=== PATIENT | female | born 1935 | race Asian ===

== ENCOUNTER 2019-03-01 12:21 | Inpatient (IN) | payer MEDICARE, OTHER ==
[2019-03-01 14:07] LABS: ADD MAN DIFF? NO
[2019-03-01 14:10] LABS: WHITE BLOOD COUNT 4.6 10^3/ul (4.8-10.8)
[2019-03-01 14:11] LABS: BASOPHILS % 0.6 % (0.0-2.0); EOSINOPHILS # 0.1 10^3/ul (0.0-0.5); EOSINOPHILS % 1.9 % (0.0-7.0); HEMATOCRIT 39.5 % (37.0-47.0); HEMOGLOBIN 13.3 g/dl (12.0-16.0); LYMPHOCYTES # 1.4 10^3/ul (0.8-2.9); LYMPHOCYTES % 31.1 % (15.0-51.0); MEAN CORPUSCULAR HEMOGLOBIN 35.4 pg (29.0-33.0); MEAN CORPUSCULAR HGB CONC 33.7 g/dl (32.0-37.0); MEAN CORPUSCULAR VOLUME 105.1 fl (82.0-101.0); MEAN PLATELET VOLUME 9.4 fl (7.4-10.4); MONOCYTE # 0.6 10^3/ul (0.3-0.9); MONOCYTES % 12.5 % (0.0-11.0); NEUTROPHIL # 2.5 10^3/ul (1.6-7.5); NEUTROPHILS % 53.5 % (39.0-77.0); PLATELET COUNT 155 10^3/UL (140-415); RED BLOOD COUNT 3.76 10^6/ul (4.20-5.40); RED CELL DISTRIBUTION WIDTH 12.8 % (11.5-14.5)
[2019-03-01 14:30] LABS: ALANINE AMINOTRANSFERASE 40 IU/L (13-69); ALBUMIN 4.4 g/dl (3.3-4.9); ALBUMIN/GLOBULIN RATIO 1.12; ALKALINE PHOSPHATASE 80 IU/L (42-121); ANION GAP 9 (5-13); ASPARTATE AMINO TRANSFERASE 40 IU/L (15-46); BILIRUBIN,INDIRECT 0.8 mg/dl (0-1.1); BILIRUBIN,TOTAL 0.8 mg/dl (0.2-1.3); BLOOD UREA NITROGEN 19 mg/dl (7-20); CALCIUM 9.5 mg/dl (8.4-10.2); CARBON DIOXIDE 25 mmol/L (21-31); CHLORIDE 108 mmol/L (97-110); CREATININE 0.59 mg/dl (0.44-1.00); GLUCOSE 99 mg/dl (70-220); POTASSIUM 4.4 mmol/L (3.5-5.1); SODIUM 142 mmol/L (135-144); TOTAL PROTEIN 8.3 g/dl (6.1-8.1)
[2019-03-01 14:36] LABS: ADD UMIC NO; UR ASCORBIC ACID 20 mg/dL (NEGATIVE); UR BILIRUBIN (Dip) NEGATIVE (NEGATIVE); UR BLOOD (Dip) NEGATIVE (NEGATIVE); UR CLARITY CLEAR (CLEAR); UR COLOR YELLOW (YELLOW); UR GLUCOSE (Dip) NEGATIVE (NEGATIVE); UR KETONES (Dip) NEGATIVE (NEGATIVE); UR LEUKOCYTE ESTERASE (Dip) NEGATIVE Leu/ul (NEGATIVE); UR NITRITE (Dip) NEGATIVE (NEGATIVE); UR SPECIFIC GRAVITY (Dip) 1.018 (1.003-1.030); UR TOTAL PROTEIN (Dip) NEGATIVE (NEGATIVE); UR UROBILINOGEN (Dip) NEGATIVE (NEGATIVE)
[2019-03-01 14:41] LABS: TROPONIN-I < 0.012 ng/ml (0.000-0.120)
[2019-03-01] MEDS: MECLIZINE 12.5 MG TAB PO (15:48)
[2019-03-01] MEDS: PROCHLORPERAZINE 10 MG INJ IV ×2 (17:12→18:41)
[2019-03-01] MEDS: SOD CHLORIDE 0.9% 500 ML IV (17:12)
[2019-03-01] MEDS ORDERED: BISACODYL (EC) 5 MG TAB PO (18:30)
[2019-03-01] MEDS ORDERED: NACL 0.9% 3 ML SYG IV (18:30)
[2019-03-01] MEDS ORDERED: ONDANSETRON 4 MG INJ IV ×2 (18:30→19:00)
[2019-03-01] MEDS ORDERED: DOCUSATE SODIUM 100 MG CAP PO (18:30)
[2019-03-01] MEDS ORDERED: ACETAMINOPHEN 325 MG TAB PO ×2 (18:30→19:00)
[2019-03-01] MEDS ORDERED: LORAZEPAM 0.5 MG TAB PO (18:30)
[2019-03-01] MEDS: MECLIZINE 25 MG TAB PO (23:26)
[2019-03-01] MEDS: PSEUDOEPHEDRINE 30 MG TAB PO (23:27)
[2019-03-01] MEDS: ATORVASTATIN 20 MG TAB PO (23:27)
[2019-03-01] MEDS: AMOXICILLIN/CLAV 875 MG TAB PO (23:27)
[2019-03-01] MEDS: LATANOPROST 0.005% 2.5 ML OPH BOTH EYES (23:28)
[2019-03-01] MEDS: FLUTICASONE 0.05% 16 GM NAS SPRAY NASAL (23:28)
[2019-03-02 01:50] LABS: CREATINE KINASE 94 IU/L (23-200)
[2019-03-02 02:02] LABS: CK INDEX 2.1; CK-MB 1.93 ng/ml (0.0-2.4); TROPONIN-I < 0.012 ng/ml (0.000-0.120)
[2019-03-02] MEDS: PANTOPRAZOLE (EC) 40 MG TAB PO (05:54)
[2019-03-02 06:19] LABS: ADD MAN DIFF? NO
[2019-03-02 06:23] LABS: BASOPHILS % 0.6 % (0.0-2.0); EOSINOPHILS # 0.1 10^3/ul (0.0-0.5); EOSINOPHILS % 2.4 % (0.0-7.0); HEMATOCRIT 41.1 % (37.0-47.0); HEMOGLOBIN 13.9 g/dl (12.0-16.0); LYMPHOCYTES # 1.4 10^3/ul (0.8-2.9); LYMPHOCYTES % 29.1 % (15.0-51.0); MEAN CORPUSCULAR HEMOGLOBIN 34.6 pg (29.0-33.0); MEAN CORPUSCULAR HGB CONC 33.8 g/dl (32.0-37.0); MEAN CORPUSCULAR VOLUME 102.2 fl (82.0-101.0); MEAN PLATELET VOLUME 9.5 fl (7.4-10.4); MONOCYTE # 0.5 10^3/ul (0.3-0.9); MONOCYTES % 10.8 % (0.0-11.0); NEUTROPHIL # 2.8 10^3/ul (1.6-7.5); NEUTROPHILS % 56.5 % (39.0-77.0); PLATELET COUNT 162 10^3/UL (140-415); RED BLOOD COUNT 4.02 10^6/ul (4.20-5.40); RED CELL DISTRIBUTION WIDTH 12.5 % (11.5-14.5)
[2019-03-02 06:23] LABS: WHITE BLOOD COUNT 4.9 10^3/ul (4.8-10.8)
[2019-03-02] MEDS: SOD CHLORIDE 0.9% 1,000 ML IV (06:40)
[2019-03-02] MEDS: ALENDRONATE 70 MG TAB PO (06:40)
[2019-03-02] MEDS: LEVOTHYROXINE 88 MCG TAB PO (06:44)
[2019-03-02 07:49] LABS: ALANINE AMINOTRANSFERASE 41 IU/L (13-69); ALBUMIN 4.5 g/dl (3.3-4.9); ALBUMIN/GLOBULIN RATIO 1.32; ALKALINE PHOSPHATASE 77 IU/L (42-121); ANION GAP 9 (5-13); ASPARTATE AMINO TRANSFERASE 42 IU/L (15-46); BILIRUBIN,INDIRECT 0.6 mg/dl (0-1.1); BILIRUBIN,TOTAL 0.6 mg/dl (0.2-1.3); BLOOD UREA NITROGEN 24 mg/dl (7-20); CALCIUM 9.2 mg/dl (8.4-10.2); CARBON DIOXIDE 24 mmol/L (21-31); CHLORIDE 111 mmol/L (97-110); CHOL/HDL RATIO 4.8 RATIO; CHOLESTEROL 219 mg/dl (100-200); CREATININE 0.48 mg/dl (0.44-1.00); GLUCOSE 112 mg/dl (70-220); HDL CHOLESTEROL 45 mg/dl (33-92); LDL CHOLESTEROL,CALCULATED 153 mg/dl; MAGNESIUM 2.5 mg/dl (1.7-2.5); POTASSIUM 5.1 mmol/L (3.5-5.1); SODIUM 144 mmol/L (135-144); TOTAL PROTEIN 7.9 g/dl (6.1-8.1); TRIGLYCERIDES 107 mg/dl (0-149)
[2019-03-02] MEDS: ASPIRIN (EC) 81 MG TAB PO (08:35)
[2019-03-02] MEDS: FLUTICASONE 0.05% 16 GM NAS SPRAY NASAL ×2 (08:35→21:39)
[2019-03-02] MEDS: ARTIFICIAL TEARS 15 ML OPH BOTH EYES ×2 (08:35→21:39)
[2019-03-02] MEDS: AMLODIPINE 10 MG TAB PO (08:36)
[2019-03-02] MEDS: ISOSORBIDE MONONITRATE(SR)30 MG TAB PO (08:36)
[2019-03-02] MEDS: PSEUDOEPHEDRINE 30 MG TAB PO (08:36)
[2019-03-02] MEDS: MECLIZINE 25 MG TAB PO ×3 (08:36→21:39)
[2019-03-02] MEDS: AMOXICILLIN/CLAV 875 MG TAB PO (08:36)
[2019-03-02] MEDS ORDERED: NON-FORMULARY/PATIENT OWN MED (Omeprazole* 40 MG) PO (09:00)
[2019-03-02] MEDS ORDERED: SUCRALFATE (100 MG/ML) 10ML CUP PO (11:00)
[2019-03-02 11:44] LABS: HEMOGLOBIN A1C 5.3 % (0-5.9)
[2019-03-02] MEDS: SUCRALFATE (100 MG/ML) 10ML CUP PO ×3 (12:02→21:39)
[2019-03-02 13:58] LABS: FREE THYROXINE INDEX (Calc) 1.58 ug/ml (0.65-3.89); T3 UPTAKE 27.2 % (23.5-40.5); T4 (THYROXINE) 5.8 ug/dl (5.5-11.0)
[2019-03-02] MEDS: LATANOPROST 0.005% 2.5 ML OPH BOTH EYES (21:38)
[2019-03-02] MEDS: LORATADINE 10 MG TAB PO (21:39)
[2019-03-02] MEDS: ATORVASTATIN 20 MG TAB PO (21:39)
[2019-03-03 05:24] LABS: ADD MAN DIFF? NO
[2019-03-03 05:33] LABS: WHITE BLOOD COUNT 7.1 10^3/ul (4.8-10.8)
[2019-03-03 05:33] LABS: BASOPHILS % 0.3 % (0.0-2.0); EOSINOPHILS # 0.1 10^3/ul (0.0-0.5); EOSINOPHILS % 1.3 % (0.0-7.0); HEMATOCRIT 38.6 % (37.0-47.0); HEMOGLOBIN 13.1 g/dl (12.0-16.0); LYMPHOCYTES # 1.1 10^3/ul (0.8-2.9); LYMPHOCYTES % 15.8 % (15.0-51.0); MEAN CORPUSCULAR HGB CONC 33.9 g/dl (32.0-37.0); MEAN CORPUSCULAR VOLUME 103.2 fl (82.0-101.0); MEAN PLATELET VOLUME 9.7 fl (7.4-10.4); MONOCYTE # 0.9 10^3/ul (0.3-0.9); MONOCYTES % 12.1 % (0.0-11.0); NEUTROPHILS % 70.1 % (39.0-77.0); PLATELET COUNT 123 10^3/UL (140-415); RED BLOOD COUNT 3.74 10^6/ul (4.20-5.40); RED CELL DISTRIBUTION WIDTH 12.4 % (11.5-14.5)
[2019-03-03] MEDS: LEVOTHYROXINE 88 MCG TAB PO (06:24)
[2019-03-03] MEDS: PANTOPRAZOLE (EC) 40 MG TAB PO (06:24)
[2019-03-03 06:58] LABS: ANION GAP 6 (5-13); BLOOD UREA NITROGEN 18 mg/dl (7-20); CALCIUM 8.7 mg/dl (8.4-10.2); CARBON DIOXIDE 24 mmol/L (21-31); CHLORIDE 110 mmol/L (97-110); CREATININE 0.47 mg/dl (0.44-1.00); GLUCOSE 107 mg/dl (70-220); MAGNESIUM 2.1 mg/dl (1.7-2.5); PHOSPHORUS 3.1 mg/dl (2.5-4.9); POTASSIUM 3.9 mmol/L (3.5-5.1); SODIUM 140 mmol/L (135-144)
[2019-03-03] MEDS: SUCRALFATE (100 MG/ML) 10ML CUP PO ×4 (08:26→21:48)
[2019-03-03] MEDS: ASPIRIN (EC) 81 MG TAB PO (08:26)
[2019-03-03] MEDS: MECLIZINE 25 MG TAB PO ×3 (08:26→21:48)
[2019-03-03] MEDS: FLUTICASONE 0.05% 16 GM NAS SPRAY NASAL ×2 (08:26→21:48)
[2019-03-03] MEDS: ARTIFICIAL TEARS 15 ML OPH BOTH EYES ×2 (08:26→21:48)
[2019-03-03] MEDS: ISOSORBIDE MONONITRATE(SR)30 MG TAB PO (08:27)
[2019-03-03] MEDS: AMLODIPINE 10 MG TAB PO (08:37)
[2019-03-03] MEDS: ATORVASTATIN 20 MG TAB PO (21:48)
[2019-03-03] MEDS: LATANOPROST 0.005% 2.5 ML OPH BOTH EYES (21:48)
[2019-03-03] MEDS: LORATADINE 10 MG TAB PO (21:48)
[2019-03-04] MEDS: PANTOPRAZOLE (EC) 40 MG TAB PO (06:24)
[2019-03-04] MEDS: LEVOTHYROXINE 88 MCG TAB PO (06:24)
[2019-03-04] MEDS: FLUTICASONE 0.05% 16 GM NAS SPRAY NASAL ×2 (09:13→20:47)
[2019-03-04] MEDS: ARTIFICIAL TEARS 15 ML OPH BOTH EYES ×2 (09:13→20:48)
[2019-03-04] MEDS: AMLODIPINE 10 MG TAB PO (09:14)
[2019-03-04] MEDS: ASPIRIN (EC) 81 MG TAB PO (09:14)
[2019-03-04] MEDS: MECLIZINE 25 MG TAB PO ×3 (09:14→20:46)
[2019-03-04] MEDS: SUCRALFATE (100 MG/ML) 10ML CUP PO ×4 (09:14→20:46)
[2019-03-04] MEDS: ISOSORBIDE MONONITRATE(SR)30 MG TAB PO (09:22)
[2019-03-04] MEDS: DICLOFENAC SODIUM 1% GEL 100 GM TUBE TP ×3 (12:42→20:47)
[2019-03-04] MEDS: CARBAMIDE PEROXIDE 6.5% 15ML OTIC BOTH EARS ×2 (14:38→20:49)
[2019-03-04] MEDS ORDERED: CARBAMIDE PEROXIDE 6.5% 15ML OTIC RIGHT EAR (15:00)
[2019-03-04] MEDS: LORATADINE 10 MG TAB PO (20:46)
[2019-03-04] MEDS: LATANOPROST 0.005% 2.5 ML OPH BOTH EYES (20:47)
[2019-03-04] MEDS: ATORVASTATIN 20 MG TAB PO (20:48)
[2019-03-05] MEDS: LEVOTHYROXINE 88 MCG TAB PO (06:07)
[2019-03-05] MEDS: PANTOPRAZOLE (EC) 40 MG TAB PO (06:07)
[2019-03-05] MEDS: FLUTICASONE 0.05% 16 GM NAS SPRAY NASAL ×2 (09:06→20:58)
[2019-03-05] MEDS: ARTIFICIAL TEARS 15 ML OPH BOTH EYES ×2 (09:06→20:58)
[2019-03-05] MEDS: SUCRALFATE (100 MG/ML) 10ML CUP PO ×4 (09:07→20:57)
[2019-03-05] MEDS: CARBAMIDE PEROXIDE 6.5% 15ML OTIC BOTH EARS ×2 (09:07→20:58)
[2019-03-05] MEDS: ASPIRIN (EC) 81 MG TAB PO (09:08)
[2019-03-05] MEDS: DICLOFENAC SODIUM 1% GEL 100 GM TUBE TP ×4 (09:09→20:58)
[2019-03-05] MEDS: ISOSORBIDE MONONITRATE(SR)30 MG TAB PO (09:09)
[2019-03-05] MEDS: MECLIZINE 25 MG TAB PO ×3 (09:09→20:59)
[2019-03-05] MEDS: AMLODIPINE 10 MG TAB PO (09:09)
[2019-03-05] MEDS: ATORVASTATIN 20 MG TAB PO (20:57)
[2019-03-05] MEDS: LATANOPROST 0.005% 2.5 ML OPH BOTH EYES (20:57)
[2019-03-05] MEDS: LORATADINE 10 MG TAB PO (20:59)
[2019-03-06] MEDS: LEVOTHYROXINE 88 MCG TAB PO (05:12)
[2019-03-06] MEDS: PANTOPRAZOLE (EC) 40 MG TAB PO (05:13)
[2019-03-06] MEDS: SUCRALFATE (100 MG/ML) 10ML CUP PO ×4 (08:51→20:15)
[2019-03-06] MEDS: ISOSORBIDE MONONITRATE(SR)30 MG TAB PO (08:52)
[2019-03-06] MEDS: MECLIZINE 25 MG TAB PO ×3 (08:52→21:00)
[2019-03-06] MEDS: AMLODIPINE 5 MG TAB PO (08:53)
[2019-03-06] MEDS: CARBAMIDE PEROXIDE 6.5% 15ML OTIC BOTH EARS ×2 (08:53→20:16)
[2019-03-06] MEDS: ASPIRIN (EC) 81 MG TAB PO (08:54)
[2019-03-06] MEDS: DICLOFENAC SODIUM 1% GEL 100 GM TUBE TP ×4 (08:54→20:20)
[2019-03-06] MEDS: FLUTICASONE 0.05% 16 GM NAS SPRAY NASAL ×2 (08:54→20:15)
[2019-03-06] MEDS: ARTIFICIAL TEARS 15 ML OPH BOTH EYES ×2 (08:54→20:15)
[2019-03-06] MEDS: ATORVASTATIN 20 MG TAB PO (20:15)
[2019-03-06] MEDS: LATANOPROST 0.005% 2.5 ML OPH BOTH EYES (20:16)
[2019-03-06] MEDS: LORATADINE 10 MG TAB PO (21:00)
[2019-03-07] MEDS: PANTOPRAZOLE (EC) 40 MG TAB PO (06:03)
[2019-03-07] MEDS: LEVOTHYROXINE 88 MCG TAB PO (06:03)
[2019-03-07 06:53] LABS: ADD MAN DIFF? NO
[2019-03-07 06:56] LABS: BASOPHILS % 0.4 % (0.0-2.0); EOSINOPHILS # 0.1 10^3/ul (0.0-0.5); HEMATOCRIT 39.8 % (37.0-47.0); HEMOGLOBIN 13.4 g/dl (12.0-16.0); LYMPHOCYTES # 1.5 10^3/ul (0.8-2.9); LYMPHOCYTES % 31.5 % (15.0-51.0); MEAN CORPUSCULAR HEMOGLOBIN 35.4 pg (29.0-33.0); MEAN CORPUSCULAR HGB CONC 33.7 g/dl (32.0-37.0); MEAN PLATELET VOLUME 10.4 fl (7.4-10.4); MONOCYTE # 0.7 10^3/ul (0.3-0.9); MONOCYTES % 14.3 % (0.0-11.0); NEUTROPHIL # 2.3 10^3/ul (1.6-7.5); NEUTROPHILS % 49.9 % (39.0-77.0); PLATELET COUNT 119 10^3/UL (140-415); RED BLOOD COUNT 3.79 10^6/ul (4.20-5.40); RED CELL DISTRIBUTION WIDTH 12.6 % (11.5-14.5)
[2019-03-07 06:56] LABS: WHITE BLOOD COUNT 4.6 10^3/ul (4.8-10.8)
[2019-03-07 07:39] LABS: ALBUMIN 3.6 g/dl (3.3-4.9); ANION GAP 5 (5-13); BLOOD UREA NITROGEN 16 mg/dl (7-20); CALCIUM 8.8 mg/dl (8.4-10.2); CARBON DIOXIDE 27 mmol/L (21-31); CHLORIDE 109 mmol/L (97-110); CREATININE 0.48 mg/dl (0.44-1.00); GLUCOSE 101 mg/dl (70-220); MAGNESIUM 2.1 mg/dl (1.7-2.5); PHOSPHORUS 3.8 mg/dl (2.5-4.9); POTASSIUM 3.8 mmol/L (3.5-5.1); SODIUM 141 mmol/L (135-144)
[2019-03-07] MEDS: FLUTICASONE 0.05% 16 GM NAS SPRAY NASAL (08:45)
[2019-03-07] MEDS: ARTIFICIAL TEARS 15 ML OPH BOTH EYES (08:46)
[2019-03-07] MEDS: CARBAMIDE PEROXIDE 6.5% 15ML OTIC BOTH EARS (08:46)
[2019-03-07] MEDS: DICLOFENAC SODIUM 1% GEL 100 GM TUBE TP ×3 (08:46→17:00)
[2019-03-07] MEDS: AMLODIPINE 5 MG TAB PO (08:46)
[2019-03-07] MEDS: MECLIZINE 25 MG TAB PO ×2 (08:47→13:02)
[2019-03-07] MEDS: SUCRALFATE (100 MG/ML) 10ML CUP PO ×3 (08:47→17:00)
[2019-03-07] MEDS: ASPIRIN (EC) 81 MG TAB PO (08:47)
[2019-03-07] MEDS ORDERED: ISOSORBIDE MONONITRATE(SR)30 MG TAB PO (09:00)
== END 2019-03-07 18:44 | disposition home health service (06) | DRG 149 ==
LOC: E/R 12:21 → 2NE 20:54
DX: H81.10 Benign paroxysmal vertigo, unspecified ear (principal); R00.1 Bradycardia, unspecified; I10 Essential (primary) hypertension; F32.9 Major depressive disorder, single episode, unspecified; M81.0 Age-related osteoporosis without current pathological fracture; E78.5 Hyperlipidemia, unspecified; F41.9 Anxiety disorder, unspecified; E03.9 Hypothyroidism, unspecified; K21.9 Gastro-esophageal reflux disease without esophagitis; I25.10 Atherosclerotic heart disease of native coronary artery without angina pectoris; H61.20 Impacted cerumen, unspecified ear
CPT/HCPCS: 70450; 70551; 71045; 72125; 80048; 80053; 80061; 80069; 81003; 82550; 82553; 83036; 83735; 84100; 84436; 84443; 84479; 84484; 85025; 93005; 93306; 96374; 97110; 97116; 97162; 97530; 99285-25; G0378